=== PATIENT | male | born 1965 | race African-American/Black ===

== ENCOUNTER → 2018-01-01 | Outpatient (CLI) | payer OTHER ==
--- NOTE | 2018-01-01 11:24 | RADIOLOGY REPORT (SQ) ---
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 Patient drank oral contrast. Images reviewed with lung, soft tissue , and bone windows. Reconstructed coronal and sagittal MPR images reviewed. Delayed images for evalua tion of the urinary system also acquired. All images stored on PACS. All CT scanners at this facility use dose modulation, iterative reconstruction, and/or weight based d osing when appropriate to reduce radiation dose to as low as reasonably achievable (ALARA). [facility]: Dose Right [facility]: CareDose [facility]: Dose Right [facility]: Teradose 4D [facility]: [id number] CONTRAST TYPE AND DOSE: contrast/concentration: Isovue 370.00 mg/ml; Total Contrast Delivered: 96.0 ml; Total Saline Delivered: 71.0 ml RENAL FUNCTION: Creatinine 1.2 RADIATION DOSE: CT Rad equipment meets quality standard of care and radiation dose reduction techniq ues were employed. CTDIvol: 6.5 - 7.7 mGy. DLP: 647 mGy-cm.. LIMITATIONS: None. FINDINGS: LOWER CHEST: Minimal right basilar pleural calcification and adjacent bandlike scarring. No pleural effusions. No acute infiltrates. LIVER: Normal size. No masses. No dilated ducts. SPLEEN: Normal size. No focal lesions. PANCREAS: No masses. No significant calcifications. No adjacent inflammation or peripancreatic fluid collections. Pancreatic duct not dilated. GALLBLADDER: No identified stones by CT criteria. No inflammatory changes to suggest cholecystitis. ADRENAL GLANDS: No significant masses or asymmetry. RIGHT KIDNEY AND URETER: No solid masses. No significant calcifications. No hydronephrosis or hyd roureter. LEFT KIDNEY AND URETER: No solid masses. No significant calcifications. No hydronephrosis or hydr oureter. AORTA AND VESSELS: No aneurysm. No dissection. Renal arteries, SMA, celiac without stenosis. RETROPERITONEUM: No retroperitoneal adenopathy, hemorrhage or masses. BOWEL AND PERITONEAL CAVITY: No masses or inflammatory changes. No free fluid or peritoneal masses. Patient drank oral contrast. No bowel obstruction. There is a left lower quadrant colostomy. APPENDIX: Normal. PELVIS: At the anorectal stump, a small fluid collection is present measuring 1.6 cm transverse by 0 .7 cm AP by 3 cm craniocaudad. This is smaller than on prior studies (was 2.2 AP by 2.2 cm transvers e on 05/06/2017, and was measured at 3.6 x 4.9 x 2.2 cm in size on CT abdomen pelvis 11/14/2016). Mild diffuse bladder wall thickening. No pelvic free fluid or adenopathy. ABDOMINAL WALL: No masses. No hernias. BONES: No significant or acute findings. OTHER: No other significant finding. IMPRESSION: Left lower quadrant colostomy. No CT evidence of bowel obstruction Decrease in size of the small fluid collection at the anorectal stump as compared to previous outside studies TECHNICAL DOCUMENTATION: JOB ID: [id number] Quality ID # 436: Final reports with documentation of one or more dose reduction techniques (e.g., Au tomated exposure control, adjustment of the mA and/or kV according to patient size, use of iterative reconstruction technique) 2010 [employer]- All Rights Reserved Reading location - IP/workstation name: [facility]
== END ==
LOC: RAD 09:12
PROVIDERS: ATTEND Internal Medicine Hematology & Oncology
DX: C20 Malignant neoplasm of rectum (principal); Z93.3 Colostomy status
CPT/HCPCS: 74177

== ENCOUNTER → 2018-09-23 | Outpatient (CLI) | payer OTHER ==
--- NOTE | 2018-09-23 15:27 | RADIOLOGY REPORT (SQ) ---
EXAM DESCRIPTION: CT CHEST WITH COMPLETED DATE/TIME: 09/23/2018 3:09 pm REASON FOR STUDY: RECTAL CA (C20) C20 MALIGNANT NEOPLASM OF RECTUM COMPARISON: None. TECHNIQUE: CT scan of the chest performed using helical scanning technique with dynamic intravenous contrast injection. Images reviewed with lung, soft tissue and bone windows. Reconstructed coronal and sagittal MPR and MIP images reviewed. All images stored on PACS. All CT scanners at this facility use dose modulation, iterative reconstruction, and/or weight based d osing when appropriate to reduce radiation dose to as low as reasonably achievable (ALARA). [facility]: Dose Right [facility]: CareDose [facility]: Dose Right [facility]: Teradose 4D [facility]: flaveit CONTRAST TYPE AND DOSE: 91 mL Omnipaque 350- low osmolar. RENAL FUNCTION: Creatinine 1.0. RADIATION DOSE: . LIMITATIONS: None. FINDINGS: LUNGS AND PLEURA: Emphysematous changes. Numerous large bullae in the upper lobes. No op acities, nodules, masses. No pneumothorax. A few scattered pleural calcifications. No effusions. HILAR AND MEDIASTINAL STRUCTURES: No identified masses or abnormal nodes. HEART AND VASCULAR STRUCTURES: No aneurysm or dissection. No central pulmonary emboli. No pericardi al effusion. HARDWARE: None in the chest. UPPER ABDOMEN: No significant findings. Limited exam. THYROID AND OTHER SOFT TISSUES: No masses. No adenopathy. BONES: No significant finding. OTHER: No other significant finding. IMPRESSION: BULLOUS EMPHYSEMA. A FEW SCATTERED PLEURAL CALCIFICATIONS. NO OTHER SIGNIFICANT FINDIN GS. NO EVIDENCE OF METASTATIC INVOLVEMENT IN THE CHEST. TECHNICAL DOCUMENTATION: JOB ID: [id number] Quality ID # 436: Final reports with documentation of one or more dose reduction techniques (e.g., Au tomated exposure control, adjustment of the mA and/or kV according to patient size, use of iterative reconstruction technique) 2010 [employer] All Rights Reserved Reading location - IP/workstation name: [email or web address]
--- NOTE | 2018-09-23 15:34 | RADIOLOGY REPORT (SQ) ---
EXAM DESCRIPTION: CT ABD/PELVIS WITH IV ORAL COMPLETED DATE/TIME: 09/23/2018 3:09 pm REASON FOR STUDY: RECTAL CA (C20) C20 MALIGNANT NEOPLASM OF RECTUM COMPARISON: 01/01/2018. TECHNIQUE: CT scan of the abdomen and pelvis performed using helical scanning technique with dynamic intravenous contrast injection. No oral contrast. Images reviewed with lung, soft tissue, and bone windows. Reconstructed coronal and sagittal MPR images reviewed. Delayed images for evaluation of the urinary system also acquired. All images stored on PACS. All CT scanners at this facility use dose modulation, iterative reconstruction, and/or weight based d osing when appropriate to reduce radiation dose to as low as reasonably achievable (ALARA). [facility]: Dose Right [facility]: CareDose [facility]: Dose Right [facility]: Teradose 4D [facility]: Yodlee CONTRAST TYPE AND DOSE: contrast/concentration: Isovue 350.00 mg/ml; Total Contrast Delivered: 91.0 ml; Total Saline Delivered: 71.0 ml RENAL FUNCTION: Creatinine 1.0. RADIATION DOSE: CT Rad equipment meets quality standard of care and radiation dose reduction techniq ues were employed. CTDIvol: 5.0 - 5.1 mGy. DLP: 707 mGy-cm.. LIMITATIONS: None. FINDINGS: LOWER CHEST: No significant findings. No nodules or infiltrates. LIVER: Normal size. No masses. No dilated ducts. SPLEEN: Normal size. No focal lesions. PANCREAS: No masses. No significant calcifications. No adjacent inflammation or peripancreatic fluid collections. Pancreatic duct not dilated. GALLBLADDER: No identified stones by CT criteria. No inflammatory changes to suggest cholecystitis. ADRENAL GLANDS: No significant masses or asymmetry. RIGHT KIDNEY AND URETER: No solid masses. No significant calcifications. No hydronephrosis or hyd roureter. LEFT KIDNEY AND URETER: No solid masses. No significant calcifications. No hydronephrosis or hydr oureter. AORTA AND VESSELS: No aneurysm. No dissection. Renal arteries, SMA, celiac without stenosis. RETROPERITONEUM: No retroperitoneal adenopathy, hemorrhage or masses. BOWEL AND PERITONEAL CAVITY: No masses or inflammatory changes. No free fluid or peritoneal masses. Colostomy in the left lower quadrant. APPENDIX: Not visualized. PELVIS: Stable surgical changes from previous resection of the rectum. Minimal residual fluid. No s oft tissue mass. No adenopathy. No free fluid. Normal bladder. ABDOMINAL WALL: No masses. No hernias. BONES: No significant or acute findings. OTHER: No other significant finding. IMPRESSION: 1. STABLE SURGICAL CHANGES IN THE PELVIS FOLLOWING RESECTION OF THE RECTUM. MINIMAL RESIDUAL FLUID. NO EVIDENCE OF SIGNIFICANT OR PROGRESSIVE SOFT TISSUE MASS OR ADENOPATHY. LEFT LOWER QUADRANT COLOS MDADIE. 2. NO OTHER SIGNIFICANT OR ACUTE FINDING IN THE ABDOMEN OR PELVIS ON CT SCAN WITH IV CONTRAST. NO EV IDENCE OF METASTATIC INVOLVEMENT. TECHNICAL DOCUMENTATION: JOB ID: [id number] Quality ID # 436: Final reports with documentation of one or more dose reduction techniques (e.g., Au tomated exposure control, adjustment of the mA and/or kV according to patient size, use of iterative reconstruction technique) 2010 [employer]- All Rights Reserved Reading location - IP/workstation name: [facility]-[email or web address]
== END ==
LOC: RAD 13:56
PROVIDERS: ATTEND Internal Medicine Hematology & Oncology
DX: C20 Malignant neoplasm of rectum (principal); J43.9 Emphysema, unspecified
CPT/HCPCS: 71260; 74177; 82565

== ENCOUNTER 2019-01-06 10:37 | Emergency (ER) | payer MEDICAID, OTHER ==
[2019-01-06 10:47] VITALS: BP 126/70
--- NOTE | 2019-01-06 11:24 | ER Document Report ---
ED General - General Chief Complaint: Other Stated Complaint: ABDOMINAL PAIN Time Seen by Provider: 01/06/19 11:15 Primary Care Provider: WILLARD SAVAGE MD [Primary Care Provider] - Follow up as needed Mode of Arrival: Ambulatory Information source: Patient TRAVEL OUTSIDE OF THE [place] IN LAST 30 DAYS: No - HPI Patient complains to provider of: Needs Colostomy Bag Onset: Just prior to arrival Notes: Patient is here stating that he needs a new colostomy bag. He typically goes to the [place]. States that the colostomy bag that he has is essentially falling off. He does not have any supplies at the house, so he came emergency department in order to get a new colostomy bag placed. He denies any new abdominal pain. No fever. No blood in his stool. No nausea, vomiting. No chest pain or shortness of breath. He denies any other specific complaints at this time. - Related Data Allergies/Adverse Reactions: No Known Allergies Allergy (Verified 01/06/19 10:39) Past Medical History - Social History Smoking Status: Current Every Day Smoker Frequency of alcohol use: Rare Drug Abuse: None Family History: Reviewed & Not Pertinent Patient has suicidal ideation: No Patient has homicidal ideation: No Renal/ Medical History: Denies: Hx Peritoneal Dialysis Malignancy Medical History: Reports Hx Colorectal Cancer, Reports Hx Liver Cancer, Reports Hx Renal (Kidney) Cancer GI Medical History: Reports: Hx Colonoscopy, Hx Endoscopy Musculoskeletal Medical History: Reports Hx Arthritis, Reports Hx Musculoskeletal Deformity Psychiatric Medical History: Reports: Hx Depression - PTSD, Hx Post Traumatic Stress Disorder Past Surgical History: Reports: Hx Abdominal Surgery - colostomy, Hx Bowel Diversion, Hx Bowel Surgery, Hx Colostomy, Hx Kidney (Renal Surgery) - Removal of cancer, Hx Oral Surgery, Hx Rectal Surgery, Other - Removal of part of his liver due to cancer - Immunizations Immunizations up to date: Yes Review of Systems - Review of Systems -: Yes All other systems reviewed and negative Physical Exam - Vital signs Vitals: Temp Pulse Resp BP Pulse Ox 98.2 F 65 16 126/70 H 99 01/06/19 10:45 01/06/19 10:45 01/06/19 10:45 01/06/19 10:45 01/06/19 10:45 - Notes Notes: GENERAL: alert, cooperative, nontoxic, no distress. HEAD: normocephalic, atraumatic EYES: conjunctiva pink without discharge, no external redness or swelling. EARS: no external swelling, no external redness NOSE: atraumatic, no external swelling MOUTH/THROAT: mucous membranes moist and pink, posterior pharynx without erythema, swelling, exudate. No trismus or drooling. NECK: soft, supple, full range of motion, no meningismus. CHEST: no distress, lungs clear and equal throughout. No wheezing, rales, rhonchi. CARDIAC: regular rate and rhythm, no murmur, normal capillary refill, normal pulses. No peripheral edema noted. ABDOMEN: Soft, nontender. Colostomy noted to the left lower quadrant. Bag coming off. This was replaced. BACK: full range of motion, no CVA tenderness. EXTREMITIES: full range of motion of all extremities. No redness, no swelling. NEURO: alert and oriented x 3, no focal deficits, full range of motion of all extremities. PYSCH: appropriate mood, affect. Patient is cooperative. SKIN: pink, warm, dry, no rash. Course - Re-evaluation Re-evalutation: 01/06/19 11:21 Patient is nontoxic-appearing with stable vitals. Patient is here to have a colostomy bag replaced. He does not have any supplies at home, patient will be discharged home. Follow-up if he has any other needs, abdominal pain, fever, vomiting, blood in stool, or any further concerns. The patient's emergency department workup and current diagnosis were explained to the patient and or family. Follow-up instructions were provided. Medications if prescribed were discussed. Instructions for when to return to the emergency department including specific worrisome symptoms were discussed with the patient and/or family. - Vital Signs Vital signs: Temp Pulse Resp BP Pulse Ox 98.2 F 65 16 126/70 H 99 01/06/19 10:45 01/06/19 10:45 01/06/19 10:45 01/06/19 10:45 01/06/19 10:45 Discharge - Discharge Clinical Impression: Colostomy care Condition: Stable Disposition: HOME, SELF-CARE Instructions: Abdominal Pain ([facility]) Additional Instructions: Follow-up as needed for severe pain, vomiting, blood in your stool, fever, or for any further concerns. Forms: Elevated Blood Pressure, Smoking Cessation Education Referrals: WILLARD SAVAGE MD [Primary Care Provider] - Follow up as needed
== END 2019-01-06 11:41 | disposition home or self-care (01) ==
LOC: ER 10:37
DX: Z43.3 Encounter for attention to colostomy (principal); R10.9 Unspecified abdominal pain; Z98.890 Other specified postprocedural states; F17.200 Nicotine dependence, unspecified, uncomplicated
CPT/HCPCS: 99282

== ENCOUNTER 2019-03-16 22:35 | Emergency (ER) | payer MEDICAID ==
--- NOTE | 2019-03-16 23:58 | ER Document Report ---
ED Medical Screen (RME) - General Chief Complaint: Alcohol Withdrawl Stated Complaint: DETOX Time Seen by Provider: 03/16/19 23:56 Primary Care Provider: WILLARD SAVAGE MD [Primary Care Provider] - Follow up as needed Notes: Patient presents to the emergency department requesting detox. pt states he is "over doing it with alcohol and street drugs" States he used cocaine and drink alcohol today. Patient is denying HI, SI. Patient is cooperative GENERAL: Alert, No acute distress. PSYCH: Flat affect, depressed mood. I have greeted and performed a rapid initial assessment of this patient. A comprehensive ED assessment and evaluation of the patient, analysis of test results and completion of the medical decision making process will be conducted by additional ED providers. I have specifically instructed the patient or family members with the patient to immediately return to any nursing staff should anything change in the patient's condition or with their chief complaint. This medical record was dictated with voice recognizing software. There may be grammatical, syntax errors that are unintended. TRAVEL OUTSIDE OF THE [place] IN LAST 30 DAYS: No - Related Data Allergies/Adverse Reactions: No Known Allergies Allergy (Verified 01/06/19 10:39) Past Medical History Renal/ Medical History: Denies: Hx Peritoneal Dialysis Malignancy Medical History: Reports Hx Colorectal Cancer, Reports Hx Liver Cancer, Reports Hx Renal (Kidney) Cancer GI Medical History: Reports: Hx Colonoscopy, Hx Endoscopy Musculoskeltal Medical History: Reports Hx Arthritis, Reports Hx Musculoskeletal Deformity Psychiatric Medical History: Reports: Hx Depression - PTSD, Hx Post Traumatic Stress Disorder Past Surgical History: Reports: Hx Abdominal Surgery - colostomy, Hx Bowel Diversion, Hx Bowel Surgery, Hx Colostomy, Hx Kidney (Renal Surgery) - Removal of cancer, Hx Oral Surgery, Hx Rectal Surgery, Other - Removal of part of his liver due to cancer - Immunizations Immunizations up to date: Yes Physical Exam - Vital signs Vitals: Temp Pulse Resp BP Pulse Ox 98.4 F 89 16 120/91 H 95 03/16/19 22:54 03/16/19 22:54 03/16/19 22:54 03/16/19 22:54 03/16/19 22:54 Course - Vital Signs Vital signs: Temp Pulse Resp BP Pulse Ox 98.4 F 89 16 120/91 H 95 03/16/19 22:54 03/16/19 22:54 03/16/19 22:54 03/16/19 22:54 03/16/19 22:54 Doctor's Discharge - Discharge Referrals: WILLARD SAVAGE MD [Primary Care Provider] - Follow up as needed
[2019-03-17 00:22] LABS: ABSOLUTE BASOPHILS # (AUTO) 0.1 10^3/uL (0.0-0.2); ABSOLUTE EOSINOPHILS # (AUTO) 0.1 10^3/uL (0.0-0.6); ABSOLUTE LYMPHOCYTES (AUTO) 1.2 10^3/uL (0.5-4.7); ABSOLUTE MONOCYTES (AUTO) 0.5 10^3/uL (0.1-1.4); ABSOLUTE NEUT (AUTO) 6.1 10^3/uL (1.7-8.2); BASOPHILS % (AUTO) 0.7 % (0-2); EOSINOPHILS % (AUTO) 0.8 % (0-6); HEMATOCRIT 44.5 % (37.9-51.0); HEMOGLOBIN 15.2 g/dL (13.5-17.0); LYMPHOCYTES % (AUTO) 15.1 % (13-45); MEAN CORPUSCULAR HEMOGLOBIN 33.2 pg (27.0-33.4); MEAN CORPUSCULAR HGB CONC 34.2 g/dL (32.0-36.0); MEAN CORPUSCULAR VOLUME 97 fl (80-97); MONOCYTES % (AUTO) 6.1 % (3-13); PLATELET COUNT 337 10^3/uL (150-450); RED BLOOD COUNT 4.57 10^6/uL (4.35-5.55); RED CELL DISTRIBUTION WIDTH 13.2 % (11.5-14.0); SEGMENTED NEUTROPHILS % (AUTO) 77.3 % (42-78); TOTAL CELLS COUNTED % (AUTO) 100 %; WHITE BLOOD COUNT 7.9 10^3/uL (4.0-10.5)
[2019-03-17 00:40] LABS: ALANINE AMINOTRANSFERASE 34 U/L (21-72); ALBUMIN 4.3 g/dL (3.5-5.0); ALKALINE PHOSPHATASE 126 U/L (38-126); ANION GAP 8 (5-19); ASPARTATE AMINO TRANSFERASE 34 U/L (17-59); BILIRUBIN,DIRECT 0.2 mg/dL (0.0-0.4); BILIRUBIN,TOTAL 0.4 mg/dL (0.2-1.3); BLOOD UREA NITROGEN 10 mg/dL (7-20); CALCIUM 9.3 mg/dL (8.4-10.2); CARBON DIOXIDE 25 mmol/L (22-30); CHLORIDE 107 mmol/L (98-107); GLUCOSE 96 mg/dL (75-110); POTASSIUM 4.6 mmol/L (3.6-5.0); SODIUM 139.8 mmol/L (137-145); TOTAL PROTEIN 7.3 g/dL (6.3-8.2)
[2019-03-17 00:41] LABS: ACETAMINOPHEN < 10 ug/mL (10-30); ALCOHOL < 10 mg/dL (NONE DETECTED); SALICYLATE < 1.0 mg/dL (2.0-20.0)
--- NOTE | 2019-03-17 01:06 | EKG REPORT ---
SEVERITY:- ABNORMAL ECG - SINUS RHYTHM INCOMPLETE RIGHT BUNDLE BRANCH BLOCK : Confirmed by: Domi Caballero MD 17-Mar-2019 01:05:54
[2019-03-17 01:42] LABS: APPEARANCE,URINE CLEAR; BILIRUBIN,URINE NEGATIVE (NEGATIVE); COLOR,URINE YELLOW; GLUCOSE, URINE NEGATIVE (NEGATIVE); KETONES,URINE NEGATIVE (NEGATIVE); LEUKOCYTE ESTERASE,URINE TRACE (NEGATIVE); NITRITE,URINE NEGATIVE (NEGATIVE); PROTEIN,URINE NEGATIVE (NEGATIVE); URINE SPECIFIC GRAVITY 1.013; UROBILINOGEN,URINE NEGATIVE mg/dL (<2.0)
[2019-03-17 02:02] LABS: URINE AMPHETAMINES SCREEN NEGATIVE; URINE BARBITURATES SCREEN NEGATIVE; URINE BENZODIAZEPINES SCREEN NEGATIVE; URINE COCAINE SCREEN UNCONFIRMED POSITIVE; URINE MARIJUANA (THC) SCREEN NEGATIVE; URINE METHADONE SCREEN NEGATIVE; URINE PHENCYCLIDINE SCREEN NEGATIVE
--- NOTE | 2019-03-17 03:47 | ER Document Report ---
ED General - General Chief Complaint: Alcohol Withdrawl Stated Complaint: DETOX Time Seen by Provider: 03/16/19 23:56 Primary Care Provider: WILLARD SAVAGE MD [ACTIVE STAFF] - Follow up as needed Notes: Patient is a 53-year-old male with a past medical history of polysubstance abuse including alcohol and cocaine who presents due to concerns of wanting to come off of these drugs. Patient denies suicidal homicidal ideation currently. States that he decided he wanted to get off of these things today. Last used c ocaine approximately 30 minutes ago. No obvious trigger for coming to the emergency department today simply states "I am tired of living this way out on the streets". I asked him to rehab 30 years ago for alcohol. Denies a history of alcohol withdrawal. States he can go several days without drinking without any symptoms. Denies any other substance use other than cocaine and alcohol but does state that he used methamphetamine once within the past month. Denies any acute physical complaints. No exacerbating or alleviating factors. TRAVEL OUTSIDE OF THE [place] IN LAST 30 DAYS: No - Related Data Allergies/Adverse Reactions: No Known Allergies Allergy (Verified 01/06/19 10:39) Past Medical History - General Information source: Patient - Social History Smoking Status: Current Every Day Smoker Frequency of alcohol use: Heavy Drug Abuse: Cocaine, Methamphetamine Family History: Reviewed & Not Pertinent Patient has suicidal ideation: No Patient has homicidal ideation: No Renal/ Medical History: Denies: Hx Peritoneal Dialysis Malignancy Medical History: Reports Hx Colorectal Cancer, Reports Hx Liver Cancer, Reports Hx Renal (Kidney) Cancer GI Medical History: Reports: Hx Colonoscopy, Hx Endoscopy Musculoskeletal Medical History: Reports Hx Arthritis, Reports Hx Musculoskeletal Deformity Psychiatric Medical History: Reports: Hx Depression - PTSD, Hx Post Traumatic Stress Disorder Past Surgical History: Reports: Hx Abdominal Surgery - colostomy, Hx Bowel Diversion, Hx Bowel Surgery, Hx Colostomy, Hx Kidney (Renal Surgery) - Removal of cancer, Hx Oral Surgery, Hx Rectal Surgery, Other - Removal of part of his liver due to cancer - Immunizations Immunizations up to date: Yes Review of Systems - Review of Systems Notes: Constitutional: Negative for fever. HENT: Negative for sore throat. Eyes: Negative for visual changes. Cardiovascular: Negative for chest pain. Respiratory: Negative for shortness of breath. Gastrointestinal: Negative for abdominal pain, vomiting or diarrhea. Genitourinary: Negative for dysuria. Musculoskeletal: Negative for back pain. Skin: Negative for rash. Neurological: Negative for headaches, weakness or numbness. 10 point ROS negative except as marked above and in HPI. Physical Exam - Vital signs Vitals: Temp Pulse Resp BP Pulse Ox 98.4 F 89 16 120/91 H 95 03/16/19 22:54 03/16/19 22:54 03/16/19 22:54 03/16/19 22:54 03/16/19 22:54 Interpretation: Normal Notes: PHYSICAL EXAMINATION: GENERAL: Well-appearing, well-nourished and in no acute distress. HEAD: Atraumatic, normocephalic. EYES: Pupils equal round and reactive to light, extraocular movements intact, sclera anicteric, conjunctiva are normal. ENT: nares patent, oropharynx clear without exudates. Moist mucous membranes. NECK: Normal range of motion, supple without lymphadenopathy LUNGS: Breath sounds clear to auscultation bilaterally and equal. No wheezes rales or rhonchi. HEART: Regular rate and rhythm without murmurs ABDOMEN: Soft, nontender, normoactive bowel sounds. No guarding, no rebound. No masses appreciated. EXTREMITIES: Normal range of motion, no pitting or edema. No cyanosis. NEUROLOGICAL: No focal neurological deficits. Moves all extremities spo ntaneously and on command. PSYCH: Anxious, somewhat fidgety, denies SI or HI. Otherwise, cooperative. SKIN: Warm, Dry, normal turgor, no rashes or lesions noted. Course - Re-evaluation Re-evalutation: 03/17/19 03:43 Patient presents with concerns of both alcohol and cocaine abuse and the need for rehabilitation. The patient is clear to state that he can go without doing either of these drugs without any significant withdrawal. Never had complicated alcohol withdrawal in the past. Last moved to rehab was roughly 30 years ago. States that he has been using alcohol heavily for the past 30 years, cocaine for the past 4 months. Denies suicidal homicidal ideation. Physical exam otherwise unremarkable. Medical screening labs unremarkable. He would like to remain on a voluntary basis as he does have [facility] and is hoping that he can get into a rehab. He is otherwise cleared for evaluation and disposition by [facility] in the morning. - Vital Signs Vital signs: Temp Pulse Resp BP Pulse Ox 97.8 F 58 L 14 115/66 96 03/17/19 04:09 03/17/19 04:09 03/17/19 04:09 03/17/19 04:09 03/17/19 04:09 - Laboratory Result Diagrams: 03/17/19 00:06 03/17/19 00:06 Laboratory results interpreted by me: 03/17/19 03/17/19 00:06 01:20 Ur Leukocyte Esterase TRACE H Salicylates < 1.0 L Acetaminophen < 10 L - EKG Interpretation by Me Additional EKG results interpreted by me: 03/17/19 03:44 Sinus rhythm, rate 67, no ST elevations or depressions. Incomplete right bundle branch block. QTc 435. Discharge - Discharge Clinical Impression: Alcohol abuse, Cocaine abuse Condition: Fair Disposition: PSYCH HOSP/UNIT Referrals: WILLARD SAVAGE MD [ACTIVE STAFF] - Follow up as needed
[2019-03-17 07:33] VITALS: BP 119/58
--- NOTE | 2019-03-17 09:59 | PSYCHOLOGICAL NOTE ---
Psych Note - Psych Note Date seen by psych provider: 03/17/19 Psych Note: Presenting Problem: Walk in for alcohol and cocaine detox. Diagnosis: Polysubstance Use Alcohol Use Disorder, Severe per patient Cocaine Use Disorder, Severe Impression/Plan: Patient is cleared from acute psychiatric services. He denied SI/HI and these were never presenting problems. he came in requesting detox from alcohol and Cocaine, and he reported he last use of both was yesterday. UDS was positive for Cocaine. [facility] reported [facility]. Coordinated care with them and scheduled outpatient followup for S[facility] with Chelsea Kennedy 03/21/19 at 0900. patient is already prescribed Effexor 37.5MG QD [facility]. Also provided the outpatient MH resource sheet which documented appointment date and time, as well as highlighted IFS MCM for voluntary detox. Consulted with Dr. Gill regarding the management and care of patient. ED Physician in agreement with recommendations.
--- NOTE | 2019-03-17 10:27 | ER Document Report ---
Doctor's Note Notes: 03/17/19 10:24 Patient seen and examined. He had presented to the emergency department for help with detoxification from alcohol, meth, and cocaine. He never had any suicidal ideation. I talked him this morning. He is feeling improved. He is feeling hopeful about a plan for his substance abuse. Feels comfortable with being discharged. Chart reviewed. Physical exam reveals a pleasant 33-year-old male who appears younger than his stated age in no acute distress. Head is neuropsych and atraumatic. Pupils are equal round, reactive to light. Heart is regular rate and rhythm, lungs are clear to oscillation bilaterally. Mildly flat affect, but cooperative examiner. There is a patient with polysubstance abuse. [facility] him up with [facility]. He is to return to the ED with worsening.
== END 2019-03-17 12:13 | disposition home or self-care (01) ==
LOC: ER 22:35
DX: F14.10 Cocaine abuse, uncomplicated (principal); F10.10 Alcohol abuse, uncomplicated; F17.200 Nicotine dependence, unspecified, uncomplicated
CPT/HCPCS: 36415; 80053; 80307; 81001; 85025; 93005; 93010; 99284

== ENCOUNTER 2019-04-03 04:37 | Emergency (ER) | payer OTHER, MEDICAID ==
[2019-04-03] MEDS ORDERED: NORMAL SALINE 1000 ML 1,000 ML IV ONE (05:09)
[2019-04-03] MEDS ORDERED: HYDROMORPHONE HCL INJ/PF 2 MG/ML AMPULE IV ONE (05:09)
[2019-04-03] MEDS ORDERED: ONDANSETRON HCL INJ/PF 4 MG/2 ML SDV IV ONE (05:10)
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
[2019-04-03 05:44] LABS: ABSOLUTE BASOPHILS # (AUTO) 0.1 10^3/uL (0.0-0.2); ABSOLUTE EOSINOPHILS # (AUTO) 0.2 10^3/uL (0.0-0.6); ABSOLUTE LYMPHOCYTES (AUTO) 1.5 10^3/uL (0.5-4.7); ABSOLUTE MONOCYTES (AUTO) 0.5 10^3/uL (0.1-1.4); ABSOLUTE NEUT (AUTO) 6.8 10^3/uL (1.7-8.2); BASOPHILS % (AUTO) 0.6 % (0-2); EOSINOPHILS % (AUTO) 1.9 % (0-6); HEMATOCRIT 42.3 % (37.9-51.0); HEMOGLOBIN 14.5 g/dL (13.5-17.0); LYMPHOCYTES % (AUTO) 16.7 % (13-45); MEAN CORPUSCULAR HEMOGLOBIN 33.2 pg (27.0-33.4); MEAN CORPUSCULAR HGB CONC 34.3 g/dL (32.0-36.0); MEAN CORPUSCULAR VOLUME 97 fl (80-97); MONOCYTES % (AUTO) 5.7 % (3-13); PLATELET COUNT 303 10^3/uL (150-450); RED BLOOD COUNT 4.37 10^6/uL (4.35-5.55); RED CELL DISTRIBUTION WIDTH 13.5 % (11.5-14.0); SEGMENTED NEUTROPHILS % (AUTO) 75.1 % (42-78); TOTAL CELLS COUNTED % (AUTO) 100 %
[2019-04-03 05:48] LABS: INTERNATIONAL RATION (INR) 1.06; PROTHROMBIN TIME 13.9 SEC (11.4-15.4)
[2019-04-03 05:49] LABS: PARTIAL THROMBOPLASTIN TIME 28.9 SEC (23.5-35.8)
[2019-04-03 06:02] LABS: ALANINE AMINOTRANSFERASE 44 U/L (21-72); ALBUMIN 4.1 g/dL (3.5-5.0); ALKALINE PHOSPHATASE 123 U/L (38-126); ANION GAP 8 (5-19); ASPARTATE AMINO TRANSFERASE 37 U/L (17-59); BILIRUBIN,DIRECT 0.2 mg/dL (0.0-0.4); BILIRUBIN,TOTAL 0.2 mg/dL (0.2-1.3); BLOOD UREA NITROGEN 14 mg/dL (7-20); CALCIUM 8.9 mg/dL (8.4-10.2); CARBON DIOXIDE 26 mmol/L (22-30); CHLORIDE 107 mmol/L (98-107); GLUCOSE 109 mg/dL (75-110); LIPASE 140.1 U/L (23-300); POTASSIUM 4.8 mmol/L (3.6-5.0); SODIUM 140.7 mmol/L (137-145); TOTAL PROTEIN 7.2 g/dL (6.3-8.2)
[2019-04-03 06:03] LABS: ALCOHOL < 10 mg/dL (NONE DETECTED)
--- NOTE | 2019-04-03 07:13 | RADIOLOGY REPORT (SQ) ---
EXAM DESCRIPTION: CT ABDOMEN PELVIS WITH IV CONTRAST COMPLETED DATE/TME: 04/03/2019 06:20 CLINICAL HISTORY: Diffuse abdominal pain COMPARISON: 09/23/2018 TECHNIQUE: CT of the abdomen and pelvis performed following IV administration of 97 mL of Omnipaque 350. DLP: 813.47 mGycm FINDINGS: Lung Bases: Minimal right lung atelectasis Bones: Degenerative change of the spine. Abdomen: Liver: The liver has normal size and density. No intrahepatic mass or biliary dilatation. Gallbladder: No calcified gallstones. Spleen, Pancreas, and Adrenal Glands: The spleen, pancreas, and adrenal glands are unremarkable. Kidneys: The kidneys have normal size and contour without evidence of solid mass or hydronephrosis. Vasculature: Aortoiliac atherosclerosis. IVC is unremarkable. The portal vein is patent. The proximal visceral and renal arteries are patent. Stomach: The stomach and duodenum have normal course. Other: No free intraperitoneal air. No free fluid or lymphadenopathy. Pelvis: Bladder: Urinary bladder is unremarkable. Bowel: No dilated loops of large or small bowel. Left ventral ostomy is stable. Appendix: Normal appendix. Pelvis: Prostate is not enlarged. IMPRESSION: 1. No acute inflammatory or obstructive process identified. This exam was performed according to our departmental dose-optimization program, which includes automated exposure control, adjustment of the mA and/or kV according to patient size and/or use of iterative reconstruction technique.
[2019-04-03 07:57] LABS: URINE AMPHETAMINES SCREEN NEGATIVE; URINE BARBITURATES SCREEN NEGATIVE; URINE BENZODIAZEPINES SCREEN NEGATIVE; URINE COCAINE SCREEN UNCONFIRMED POSITIVE; URINE MARIJUANA (THC) SCREEN NEGATIVE; URINE METHADONE SCREEN NEGATIVE; URINE PHENCYCLIDINE SCREEN NEGATIVE
[2019-04-03 08:06] VITALS: BP 140/79
[2019-04-03 08:13] LABS: APPEARANCE,URINE CLEAR; BILIRUBIN,URINE NEGATIVE (NEGATIVE); COLOR,URINE YELLOW; GLUCOSE, URINE NEGATIVE (NEGATIVE); KETONES,URINE NEGATIVE (NEGATIVE); LEUKOCYTE ESTERASE,URINE NEGATIVE (NEGATIVE); NITRITE,URINE NEGATIVE (NEGATIVE); PROTEIN,URINE NEGATIVE (NEGATIVE); URINE SPECIFIC GRAVITY 1.027
== END 2019-04-03 08:06 | disposition home or self-care (01) ==
LOC: ER 04:37
DX: R10.84 Generalized abdominal pain (principal); I10 Essential (primary) hypertension; F14.10 Cocaine abuse, uncomplicated; F17.200 Nicotine dependence, unspecified, uncomplicated; Z93.3 Colostomy status; Z91.14 Patient's other noncompliance with medication regimen; Z85.048 Personal history of other malignant neoplasm of rectum, rectosigmoid junction, and anus; Z85.05 Personal history of malignant neoplasm of liver; Z85.528 Personal history of other malignant neoplasm of kidney
CPT/HCPCS: 99284; 96361; 96374; 96375; 86900; 86901; 36415; 86850; 80307 ×2; 83690; 83735; 85025; 85610; 85730; 82272; 80053; 81001; 74177; J1170; J2405; J7030

== ENCOUNTER 2019-07-28 01:59 | Emergency (ER) | payer MEDICAID, OTHER ==
--- NOTE | 2019-07-28 02:39 | ER Document Report ---
ED General - General Chief Complaint: Medical Complaint Stated Complaint: COLOSTOMY BAG NEEDED Time Seen by Provider: 07/28/19 02:20 Primary Care Provider: [facility] [Primary Care Provider] - Follow up as needed TRAVEL OUTSIDE OF THE [place] IN LAST 30 DAYS: No - HPI Notes: Patient is a 53-year-old male who presents to the emergency department for evaluation. He states he needs another colostomy bag. [place]. His supplies were ordered and they were late. He states he was drinking alcohol tonight, and he usually gets watery ostomy output with that. He states he is afraid he will go to sleep, room in the bag, "make a mess" and not have a back-up bag. That is why he presents here today. He states that he is not concerned about the watery output after drinking. He states he knows it was a mistake to drink, admits that he drinks often. He has no interest at this time and receiving any sort of help in regards to his alcohol intake. - Related Data Allergies/Adverse Reactions: No Known Allergies Allergy (Verified 04/03/19 04:43) Past Medical History - General Information source: Patient - Social History Smoking Status: Current Every Day Smoker Frequency of alcohol use: Heavy Drug Abuse: None Family History: Reviewed & Not Pertinent Patient has suicidal ideation: No Patient has homicidal ideation: No Renal/ Medical History: Denies: Hx Peritoneal Dialysis Malignancy Medical History: Reports Hx Colorectal Cancer - Metastatic, in remission, Reports Hx Liver Cancer, Reports Hx Renal (Kidney) Cancer GI Medical History: Reports: Hx Colonoscopy, Hx Endoscopy Musculoskeletal Medical History: Reports Hx Arthritis, Reports Hx Musculoskeletal Deformity Psychiatric Medical History: Reports: Hx Depression - PTSD, Hx Post Traumatic Stress Disorder Past Surgical History: Reports: Hx Abdominal Surgery - colostomy, Hx Bowel Diversion, Hx Bowel Surgery, Hx Colostomy, Hx Kidney (Renal Surgery) - Removal of cancer, Hx Oral Surgery, Hx Rectal Surgery, Other - Removal of part of his liver due to cancer - Immunizations Immunizations up to date: Yes Review of Systems - Review of Systems Constitutional: No symptoms reported EENT: No symptoms reported Cardiovascular: No symptoms reported Respiratory: No symptoms reported Gastrointestinal: See HPI Genitourinary: No symptoms reported Musculoskeletal: No symptoms reported Skin: No symptoms reported Neurological/Psychological: No symptoms reported Physical Exam - Vital signs Vitals: Temp Pulse Resp BP Pulse Ox 97.2 F 82 20 140/78 H 100 07/28/19 02:14 07/28/19 02:14 07/28/19 02:14 07/28/19 02:14 07/28/19 02:14 - Notes Notes: 53-year-old male who appears his stated age. He smells of alcohol, no acute distress. Vital signs reviewed, please refer to chart. Head is normocephalic, atraumatic. Pupils equal round, reactive to light. Neck is supple without meningismus. Heart is regular rate and rhythm. Lungs are clear to auscultation bilaterally. Abdomen is soft, nontender, normoactive bowel sounds throughout. Colostomy in left lower quadrant of abdomen with a scant amount of liquid brown stool. Stoma is pink. Extremities without cyanosis, clubbing. Posterior calves are nontender. Peripheral pulses are equal. Skin is warm and dry. Patient is awake, alert, neurological exam is nonfocal. Course - Re-evaluation Re-evalutation: 07/28/19 02:28 Patient presents emergency department for evaluation. He is advised to quit smoking. He is advised to quit drinking. I explained to the patient I can give him an extra colostomy bag, but also explained this was not the appropriate place to obtain extra colostomy supplies. I explained to the patient that I did not feel comfortable discharging him on his own, as he drove himself here, having admitted to being intoxicated. Patient agrees to call his daughter. He will be given the colostomy supplies when she arrives. - Vital Signs Vital signs: Temp Pulse Resp BP Pulse Ox 97.2 F 82 20 140/78 H 100 07/28/19 02:14 07/28/19 02:14 07/28/19 02:14 07/28/19 02:14 07/28/19 02:14 Discharge - Discharge Clinical Impression: Colostomy care, Alcohol abuse Condition: Stable Disposition: HOME, SELF-CARE Instructions: Chronic Alcoholism ([facility]) Additional Instructions: Try to avoid drinking heavily in the future. [place]. Follow-up with your doctor this week. Re turn to the emergency department with worsening or new concerning symptoms. [facility]errals: [facility] [[facility]] - Follow up as needed
[2019-07-28 05:46] VITALS: BP 136/70
== END 2019-07-28 05:30 | disposition home or self-care (01) ==
LOC: ER 01:59
DX: Z43.3 Encounter for attention to colostomy (principal); F17.200 Nicotine dependence, unspecified, uncomplicated; F10.129 Alcohol abuse with intoxication, unspecified
CPT/HCPCS: 99283

== ENCOUNTER 2019-10-20 05:17 | Emergency (ER) | payer OTHER ==
[2019-10-20] MEDS ORDERED: HALOPERIDOL LACTATE INJ 5 MG/1 ML VIAL IM PRN (05:58)
[2019-10-20] MEDS ORDERED: ZIPRASIDONE HCL 40 MG CAPSULE PO ONE (05:58)
[2019-10-20] MEDS ORDERED: LORAZEPAM 1 MG TABLET PO ONE (05:58)
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
[2019-10-20 06:24] LABS: ABSOLUTE LYMPHOCYTES (AUTO) 1.5 10^3/uL (0.5-4.7); ABSOLUTE MONOCYTES (AUTO) 0.5 10^3/uL (0.1-1.4); ABSOLUTE NEUT (AUTO) 6.1 10^3/uL (1.7-8.2); BASOPHILS % (AUTO) 0.6 % (0-2); EOSINOPHILS % (AUTO) 0.6 % (0-6); HEMOGLOBIN 14.6 g/dL (13.5-17.0); LYMPHOCYTES % (AUTO) 18.2 % (13-45); MEAN CORPUSCULAR HGB CONC 34.8 g/dL (32.0-36.0); MEAN CORPUSCULAR VOLUME 98 fl (80-97); MONOCYTES % (AUTO) 6.1 % (3-13); PLATELET COUNT 286 10^3/uL (150-450); RED BLOOD COUNT 4.31 10^6/uL (4.35-5.55); RED CELL DISTRIBUTION WIDTH 13.7 % (11.5-14.0); SEGMENTED NEUTROPHILS % (AUTO) 74.5 % (42-78); TOTAL CELLS COUNTED % (AUTO) 100 %; WHITE BLOOD COUNT 8.2 10^3/uL (4.0-10.5)
--- NOTE | 2019-10-20 06:28 | EKG REPORT ---
SEVERITY:- ABNORMAL ECG - SINUS RHYTHM INCOMPLETE RIGHT BUNDLE BRANCH BLOCK : Confirmed by: Sivakumar Harmon MD 20-Oct-2019 06:27:51
[2019-10-20 06:43] LABS: ACETAMINOPHEN < 10 ug/mL (10-30); ALBUMIN 4.2 g/dL (3.5-5.0); ALCOHOL < 10 mg/dL (NONE DETECTED); ALKALINE PHOSPHATASE 109 U/L (38-126); ANION GAP 6 (5-19); ASPARTATE AMINO TRANSFERASE 39 U/L (17-59); BILIRUBIN,TOTAL 0.7 mg/dL (0.2-1.3); BLOOD UREA NITROGEN 15 mg/dL (7-20); CALCIUM 9.3 mg/dL (8.4-10.2); CARBON DIOXIDE 25 mmol/L (22-30); CHLORIDE 109 mmol/L (98-107); GLUCOSE 90 mg/dL (75-110); SALICYLATE < 1.0 mg/dL (2.0-20.0); TOTAL PROTEIN 7.2 g/dL (6.3-8.2)
--- NOTE | 2019-10-20 17:48 | PSYCHOLOGICAL NOTE ---
Psych Note - Psych Note Date seen by psych provider: 10/20/19 Time seen by psych provider: 15:00 Psych Note: Per chart review, pt c/o having SI and HI with no plan, just thoughts. pt is agitated and pacing in lobby. pt states "I have been off my meds for 4 days and I did crack and pot at 0300 today." pt is cooperative, but anxious. pt breathing e/u, aaox3. pt states "I have thoughts of SI and HI, but no plan and that is what scares me." Clinician was unable to conduct evaluation due to sedative medications used to manage patient's "manic" state. Will reattempt tomorrow.
--- NOTE | 2019-10-21 10:50 | ER Document Report ---
Doctor's Note Notes: 10/21/19 10:49 54-year-old male with history of bipolar presenting for evaluation of paranoid delusions. Patient states he has been off of his medicines for 5 days. He otherwise refuses to engage with me at this time. Patient states he does not definitively have thoughts of hurting himself or hurting others but would not rule it out. Notified by nursing that patient was mildly hypotensive this morning but they checked his blood pressure at the time they woke him up. Will have them recheck blood pressure once patient is awake and sitting up. Awaiting evaluation by psychiatric team
[2019-10-21 12:11] LABS: APPEARANCE,URINE CLOUDY; BILIRUBIN,URINE NEGATIVE (NEGATIVE); GLUCOSE, URINE NEGATIVE (NEGATIVE); KETONES,URINE TRACE mg/dL (NEGATIVE); LEUKOCYTE ESTERASE,URINE MODERATE (NEGATIVE); NITRITE,URINE POSITIVE (NEGATIVE); PROTEIN,URINE 30 mg/dL (NEGATIVE)
[2019-10-21 12:16] LABS: COLOR,URINE DARK YELLOW
[2019-10-21 12:30] LABS: URINE BARBITURATES SCREEN NEGATIVE; URINE BENZODIAZEPINES SCREEN NEGATIVE; URINE COCAINE SCREEN NEGATIVE; URINE MARIJUANA (THC) SCREEN NEGATIVE; URINE METHADONE SCREEN NEGATIVE; URINE PHENCYCLIDINE SCREEN NEGATIVE
[2019-10-21 12:50] VITALS: BP 96/42
[2019-10-21] MEDS ORDERED: VENLAFAXINE HCL 37.5 MG CAP.SR.24H PO ONE (13:50)
--- NOTE | 2019-10-21 19:07 | PSYCHOLOGICAL NOTE ---
Psych Note - Psych Note Date seen by psych provider: 10/21/19 Time seen by psych provider: 11:00 Psych Note: Patient is a 54-year-old male who presents to ED via POV requesting "to see a shrink." Patient has a history of substance use. Patient's urine drug screen was positive for meth/amphetamines. Patient reported "feeling better." Patient stated "things imploded helping friends move." Patient denies SI/HI. Patient states "it has been a while" since he has had SI. Patient reports "not being ready to face reality" of his "cheating ex and daughter." Patient requested inpatient hospitalization and stated he had plans to "go to to [facility]. Patient is alert and oriented to person, place, time and circumstance. Mood is normal with congruent affect. Patient denies suicidal and homicidal ideations. Delusions are absent and behavior is congruent with an intact reality based presentation (i.e., organized and linear through processes). There is no observed behavior that suggests patient is responding to internal stimuli. Patient is able to engage in organized, rational thought processes. Patient is able to express needs and wants in a logical manner. Patient denies current auditory and visual hallucinations. Eye contact is appropriate. Conversational speech is within normal rate, tone, and prosody. Intellectual ability appears to be within average range. Attention and concentration are good. Insight, judgment and impulse control are currently poor. Medication recommendations: Clinician obtain patient's medication list from [facility] Effexor 37.5- ONE TIME DOSE Impression/Plan: Patient is recommended for rescind of IVC and is cleared from acute psychiatric services. Bridge dose of medicaiton was provided after being [facility] Patient denies suicidal and homicidal ideations. There is no observed behavior that suggests patient is responding to internal stimuli. Patient engaged in organized, rational, linear thought processes and was able to express needs and wants in a logical manner. States his current substance use was attempt to escape reality due to emotional distress related to his ex-girlfriend who cheated on him and his daughter who is . Patient stated his plan was to [facility]. [facility] informed behavioral health team patient has no showed for several appointments. Behavioral health team made [facility] aware of patient's plan. Dr. Gill was consulted on the care and management of this patient; attending physician is in agreement with recommendations and disposition.
== END 2019-10-21 14:05 | disposition home or self-care (01) ==
LOC: ER 05:17
DX: F30.9 Manic episode, unspecified (principal); F15.10 Other stimulant abuse, uncomplicated; F17.200 Nicotine dependence, unspecified, uncomplicated; R45.851 Suicidal ideations; R45.850 Homicidal ideations
CPT/HCPCS: 93005; 99285; 96372; 36415; 80307 ×4; 85025; 80053; 81001; 93010; J3490; J1630